=== PATIENT | female | born 1965 | race American Indian/Alaskan Native ===

== ENCOUNTER 2017-12-17 16:32 | Inpatient (IN) | payer OTHER, BC ==
[~2017-12-17] VITALS: Ht 162.6 cm; Wt 79.4 kg
[2017-12-17] MEDS ORDERED: fentaNYL CITR 100 MCG/2 ML AMP IVP ONE ×2 (16:40→19:10)
[2017-12-17] MEDS ORDERED: ONDANSETRON 4 MG/2 ML VIAL IVP ONE (16:40)
[2017-12-17] MEDS ORDERED: EMS NS 0.9%(*) 1000 ML BAG 1,000 ML IV ONE (16:40)
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
[2017-12-17] MEDS ORDERED: IOPAMIDOL 76% 75 ML INFUS BTL 75 ML ONE (16:58)
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
[2017-12-17 17:19] LABS: PLATELET COUNT, AUTOMATED 187 K/uL (150-450)
[2017-12-17 18:19] LABS: INR 1.04
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
[2017-12-17 21:20] VITALS: BP 106/51
[2017-12-17] MEDS ORDERED: HYDROmorphone HCL 2 MG/ML SDV IVP PRN (22:05)
[2017-12-17] MEDS ORDERED: FLUSH 10 ML SYR IVP PRN (22:05)
[2017-12-17] MEDS ORDERED: ONDANSETRON 4 MG/2 ML VIAL IVP PRN (22:05)
[2017-12-17] MEDS: POLYETHYLENE GLYCOL 17 GM PKT PO SCH (22:43)
[2017-12-17] MEDS: GABAPENTIN 100 MG CAP PO SCH (22:43)
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
[2017-12-17 22:49] VITALS: BP 99/56
[2017-12-18 02:30] VITALS: BP 87/48
[2017-12-18 06:18] VITALS: BP 97/50
[2017-12-18] MEDS: GABAPENTIN 100 MG CAP PO SCH ×3 (08:44→21:31)
[2017-12-18] MEDS: DOCUSATE SODIUM 100 MG CAP PO SCH ×2 (08:44→21:31)
[2017-12-18] MEDS: ACETAMINOPHEN 500 MG TAB PO PRN ×3 (08:44→18:20)
[2017-12-18] MEDS: POLYETHYLENE GLYCOL 17 GM PKT PO SCH ×2 (08:44→21:31)
[2017-12-18] MEDS: ENOXAPARIN 30 MG/0.3 ML SYR SC SCH ×2 (08:45→21:31)
[2017-12-18 10:42] VITALS: Ht 162.6 cm; Wt 79.4 kg
[2017-12-18 10:53] VITALS: BP 101/58
[2017-12-18 14:14] VITALS: BP 95/52
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
[2017-12-18 19:44] VITALS: BP 96/53
[2017-12-18 22:44] VITALS: BP 95/59
[2017-12-19] MEDS: ACETAMINOPHEN 500 MG TAB PO PRN ×2 (02:58→10:49)
[2017-12-19 03:01] VITALS: BP 102/57
[2017-12-19 09:07] VITALS: BP 115/66
[2017-12-19] MEDS: GABAPENTIN 100 MG CAP PO SCH ×2 (09:17→13:58)
[2017-12-19] MEDS: DOCUSATE SODIUM 100 MG CAP PO SCH (09:17)
[2017-12-19] MEDS: POLYETHYLENE GLYCOL 17 GM PKT PO SCH (09:17)
[2017-12-19] MEDS: ENOXAPARIN 30 MG/0.3 ML SYR SC SCH (09:18)
[2017-12-19 10:51] VITALS: BP 119/65
[2017-12-19] MEDS ORDERED: IBUPROFEN 600 MG TAB PO PRN (12:05)
[2017-12-19] MEDS ORDERED: IBUPROFEN 600 MG TAB PO SCH (14:00)
--- NOTE | 2017-12-19 14:56 | RADIOLOGY IMAGING REPORT ---
FACILITY: PATIENT NAME: Ashleigh Lara : 1965 MR: [id number] V: [id number] EXAM DATE: ORDERING PHYSICIAN: COCO DAIGLE TECHNOLOGIST: Location: [facility] [place] Patient: Ashleigh Laar : 1965 Visit/Account:[id number] Date of Sevice: 12/19/2017 Technique: THORACIC SPINE 2 VIEW HISTORY: T4 fracture; Now w/ brace; ensure allignment/baseline COMPARISON: None available FINDINGS: There is no acute fracture. The vertebral body alignment, heights and intervertebral disc spaces are maintained. Endplate osteophytosis is noted throughout the thoracic spine. IMPRESSION: 1. Degenerative changes as described above. Report Dictated By: Driss Cowan DO at 12/19/2017 2:50 PM Report E-Signed By: Driss Cowan DO at 12/19/2017 2:51 PM WSN:[id number]
[2017-12-19 15:31] VITALS: BP 111/65
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
[2017-12-19] MEDS ORDERED: DOCU-416 PO (16:50)
[2017-12-19] MEDS ORDERED: POLY17PO25 PO (16:50)
[2017-12-19] MEDS ORDERED: GABA-547 PO (16:50)
[2017-12-19] MEDS ORDERED: ACET-2146 PO (16:50)
[2017-12-19] MEDS ORDERED: TRAM-420 PO (16:50)
[2017-12-19] MEDS ORDERED: IBUP600T22 PO (16:50)
== END 2017-12-19 18:30 | disposition home or self-care (01) | DRG 552 ==
LOC: ER 16:39 → MED 20:28
PROVIDERS: ADMIT Surgery; ATTEND Surgery
DX: S22.048A Other fracture of fourth thoracic vertebra, initial encounter for closed fracture (principal); R09.02 Hypoxemia; E04.1 Nontoxic single thyroid nodule; V44.6XXA Car passenger injured in collision with heavy transport vehicle or bus in traffic accident, initial encounter; Y92.411 Interstate highway as the place of occurrence of the external cause
CPT/HCPCS: 70450; 71045; 71260; 72070; 72125; 72129; 72132; 72170; 74177; 82040; 82247; 82310; 82374; 82435; 82565; 82947; 84075; 84132; 84155; 84295; 84450; 84460; 84520; 85025; 85610; 85730; J1650; J2405; J3010; Q9967

== ENCOUNTER → 2017-12-17 | Outpatient (CLI) | payer OTHER ==
[~2017-12-17] MED LIST: ACET-2146 PO; DOCU-416 PO; GABA-547 PO; IBUP600T22 PO; POLY17PO25 PO; TRAM-420 PO
[2017-12-18 10:42] VITALS: BMI 30.0
== END ==
LOC: AMB 15:49
PROVIDERS: ATTEND Nurse Practitioner
DX: M54.2 Cervicalgia (principal); M54.5 Low back pain; V44.6XXA Car passenger injured in collision with heavy transport vehicle or bus in traffic accident, initial encounter; Y92.411 Interstate highway as the place of occurrence of the external cause
CPT/HCPCS: A0425; A0427